=== PATIENT | female | born 1965 | race Two or more races ===

== ENCOUNTER 2017-12-13 18:13 | Emergency (ER) | payer MEDICAID ==
[~2017-12-13] VITALS: Ht 160 cm; Wt 64.9 kg
--- NOTE | 2017-12-13 18:30 | NUR ---
PATIENT BIBRA S/P MECHANICAL FALL. NOTED WITH RIGHT KNEE SWELLING WITH AIR SPLINT IN PLACE. PATIENT STATES PAIN 7/10. NO OTHER COMPLAINTS. MD AT BEDSIDE.
[2017-12-13] MEDS ORDERED: HYDROCODONE/APAP 5/325MG 1 EACH TABLET ONE (18:38)
[2017-12-13] MEDS ORDERED: HYDROCODONE/APAP 5/325MG 1 EACH TABLET PO ONE (19:00)
--- NOTE | 2017-12-13 19:12 | NUR ---
CARE ENDORSED TO SHANELLE RICHARDSON FOR CHASE
[2017-12-13] MEDS ORDERED: MORPHINE SULFATE INJ 4 MG/ML DISP.SYRIN ONE (19:36)
[2017-12-13] MEDS ORDERED: ONDANSETRON 4 MG TAB.RAPDIS ONE (19:37)
[2017-12-13] MEDS ORDERED: ONDANSETRON 4 MG TAB.RAPDIS SL ONE (20:00)
[2017-12-13] MEDS ORDERED: MORPHINE SULFATE INJ 2 MG/ML DISP.SYRIN IM ONE (20:00)
[2017-12-13] MEDS ORDERED: HYDROMORPHONE 1 MG/1 ML DISP.SYRIN ONE (21:11)
[2017-12-13] MEDS ORDERED: HYDROMORPHONE INJ 0.5 MG/0.5 ML SYRINGE IM ONE (21:30)
[2017-12-13 21:40] VITALS: BP 128/84
== END 2017-12-13 21:41 | disposition home or self-care (01) ==
LOC: ER 18:15
DX: S82.031A Displaced transverse fracture of right patella, initial encounter for closed fracture (principal); W01.0XXA Fall on same level from slipping, tripping and stumbling without subsequent striking against object, initial encounter; Y93.89 Activity, other specified; Y92.89 Other specified places as the place of occurrence of the external cause; Y99.8 Other external cause status
CPT/HCPCS: 29505; 73560; 96372 ×2; 99284; A4606; J1170; J2270; Q0162; Z7610